=== PATIENT | female | born 1995 | race Caucasian/White ===

== ENCOUNTER 2024-06-25 13:18 | Outpatient (AMB) | payer OTHER, SELFPAY ==
--- NOTE | 2024-06-25 13:23 | A.OFFVIS_ITS ---
Vital Signs 06/25/24 13:26 Height 5 ft 1 in Weight 188 lb 4 oz BMI 35.6 BP 112/72 Blood Pressure Location Rt brachial Position Sitting Intake Visit Reasons: ENP-Migraine w/worsening visual Intake Note: Patient presents for migraines. Allergies No Known Allergies Allergy (Verified 06/25/24 13:27) Medication List - Last Reconciled 06/25/24 by Aarti Chi, HEEL [facility]ICKER albuterol sulfate 90 mcg/actuation 2 puffs inhalation Q4H PRN escitalopram oxalate 10 mg PO DAILY lamotrigine 100 mg PO DAILY norethindrone (contraceptive) 0.35 mg PO DAILY PNV cmb#95-ferrous fumarate-FA 28 mg iron- 800 mcg () 1 tab PO QAM HPI Comments Details: Right-handed 29-yr-old female presents for new pt evaluation of headache disorder. Pt reports she started having migraines since adolescence, however they became more severe and frequent around age 22-23 w/o known precipitating causes. Note pt is 3 months w/ her 1st child. During her the migraines were better. She is currently nursing 3 x's per day/. Menses is currently irregular on low dose progesterone oral contraceptive- prior to was very regular. Plans on trying an IUD. Not currently on preventive migraine tx, and triptans were stopped when she became . PMH and ROS are notable for:? General: fatigue, wt changes. Occasional restless leg. Had anemia. Musculoskeletal disorders or injury: occasional neck/back pain. Mood d/o: Anxiety, Depression, Bilpolar type II d/o. Denies PTSD. Mood well- controlled on current regimen- f/b psych and therapist. Respiratory d/o: Asthma CV disease: prone to low BP and near-syncope but near full syncope GI d/o: GERD, Constipation Family planning: may consider additional in 2-3 yrs. Family history of migraine or other headache disorder: mother has migraine. Pertinent denials include: History of concussion/head injury, CV disease, Clotting or hematology d/o, Endocrine d/o, metabolic d/o, History of seizure, syncope, or drop attacks, leg cramps. [Family history of migraine or other headache disorder] Lifestyle considerations: Sleep routine: Usual bedtime: 9:30-11pm and wake-up time: 8-8:30am. Sleep difficulties: Denies. Restless legs- jumpy in evening or when goes to bed- mild. Has bruxism- started after starting escitalopram. Caffeine use: 1 cup of coffee every few days. May drink 1 [id number] bottle per day. 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 Previous work-up: MRI: normal- 2-3 yrs ago. Typical headache characteristics: Prodrome symptoms: unsure Aura: Can see exploding star bursts, fireworks, has lost vision- before or during the headache. Pain intensity: moderate-severe Location, quality, characteristics: Usually starts in one eye and moves to the other side, can also be frontal, lateral, and back of head.behind Associated symptoms: dry eye sensation w/ wateriness, photophobia, allodynia, nausea, vomiting, not right in space dizziness, lightheadedness, fatigue, activity intolerance. Postdrome: can have lingering hang over sensation Triggers: Menstrual cycle. Bending oevr exacerbates headache but does not cause it. Time of day: No specific time of day Duration and Frequency: 1-24 hrs occurring 3 x's per week. How does headache impact your life? has to lay down and sleep. Current acute medication use/interventions: Ibuprofen 600-800mg or Tylenol 500mg- once per migraine day. Current preventative medication use: Lamotrigine 100mg- has not helped auras. Non-pharmacological interventions: rest and sleep [facility], [facility] Medical History (Updated 06/25/24 @ 14:59 by HEDY Riggins) anemia GERD (gastroesophageal reflux disease) Bipolar II disorder Asthma Anxiety Allergic rhinitis Surgical History (Updated 06/25/24 @ 13:29 by JOSE Valente) History of oral surgery History of tonsillectomy and adenoidectomy Social History (Updated 06/25/24 @ 13:29 by JOSE Valente) Alcohol intake: never Patient Tobacco Use Status: Never used Tobacco Physical Exam Vital Signs: Last Vital Signs BP 112/72 06/25/24 13:26 BMI result Body Mass Index 35.6 Const Orientation/consciousness: patient oriented x3 Resp Effort & Inspection: normal respiratory effort and able to speak in complete sentences Neuro Other: No palpable scalp tenderness. Photophobic Good cervical ROM. General: patient oriented x3 Cranial nerves: Yes CN's II-XII intact bilaterally Cognition (Neuro): normal cognition Gait exam (Neuro): Normal gait present Motor exam (neuro): 5/5 motor strength present throughout Deep tendon reflexes (DTR's): Right triceps reflex intensity grade: 2+, Left triceps reflex intensity grade: 2+, Rt Biceps (C5, C6): 2+, Left biceps reflex intensity grade: 2+, Right brachioradialis reflex intensity grade: 2+, Left brachioradialis reflex intensity grade: 2+, Right patellar reflex intensity grade: 2+ and Left patellar reflex intensity grade: 2+ Coordination: [id number] test normal, tandem gait normal and Romberg test negative Pupils: Normal pupillary reactivity/response: bilateral Psych Appearance: grossly normal Mental Status: mental status grossly normal Speech and movement: Normal speech and movement present Affect: normal affect Attitude: cooperative Thought process: Normal thought process present Assessment & Plan Assessment & Plan (1) Migraine with aura: Code(s): G43.109 - Migraine with aura, not intractable, without status migrainosus Category: Medical (2) Mother currently breast-feeding: Code(s): Z39.1 - Encounter for care and examination of lactating mother Category: Medical (3) Restless leg syndrome: Comment: mild, occasional Code(s): G25.81 - Restless legs syndrome Category: Medical Plan For overall headache management: * Optimize good self-care, including but not limited to maintaining a healthy diet, adequate fluid intake, adequate sleep, and engaging in regular physical activity. * Track headaches, especially after any treatment regimen changes. Migraine [employer] is one of many headache tracking apps. * Information shared on non-pharmacological interventions which may help to alleviate headache attack burden. * For light sensitivity: Patient may benefit from trying blue light filtering glasses, green glasses, green light therapy. * Avoiding wearing sunglasses inside. * Neuromodulation devices, which can be used alone or with pharmacological treatment- such as Cefaly or Nerivio devices. For acute headache treatment: Discussed importance of taking acute medications at the first sign of headache, however stressed importance of avoiding acute medication overuse (especially with combined headache medications). Sumatriptan may used while breast feeding. Trial Sumatriptan 100mg tab, 1/2 - 1 tab (50-100mg) at onset of headache, may repeat in 2 hours. Max of 2 tabs (200mg) per 24 hours. May adjunct with OTC Tylenol 650mg q 4 hours, Ibuprofen 600-800mg q 6-8 hours, or Naproxen 440mg q 12 hrs prn. Potential adverse effects of triptans, include but are not limited to nausea, fatigue, chest tightness/tingling (usually passes within a few minutes), medication overuse headaches. Previous acute migraine medication trials: Sumatriptan 25mg- helpful. Rizatriptan- was more effective. Acute migraine medication contraindications: None at this time For headache prevention medication: Preventative medications should be taken routinely as prescribed for best effec t, it may take several weeks for full effect to take effect. Start Magnesium 400mg qhs Previous migraine prevention medication trials: Topiramate 50mg- ineffective after x's 1.5 yrs. Propranolol ET 80-120mg- ineffective and caused hypotension, though did help anxiety. Migraine prevention medication contraindications: CGRP antagonists as pt is currently breast feeding. Depakote as pt is a female of child bearing age. Anti- HTN including beta-blockers agents d/t low BP. Pt seen in collaboration w/ Dr Thelma Lau. Pt to follow-up in 4-6 months or sooner prn. Medications: New sumatriptan succinate (0.5 - 1 x 100 mg) 50 - 100 mg orally at onset of headache, may repeat in 2 hrs PRN; max 2 tabs per day or 4 tabs/week (may take with Ibuprofen) 30 days 12 tabs 6RF migraine headache magnesium oxide may hold for loose stools 400 mg PO BEDTIME 30 days 30 tabs 6RF Coding Level of Care Code New Pt Level 4 (28889) Diagnoses Migraine with aura G43.109 Mother currently breast-feeding Z39.1 Restless leg syndrome G25.81
[2024-06-25 13:26] VITALS: BP 112/72; BMI 35.6
== END 2024-06-25 14:39 | disposition home or self-care (01) ==
LOC: HO.HSMS 13:18
PROVIDERS: PCP Internal Medicine; Visit Provider Nurse Practitioner Family
DX: G43.109 Migraine with aura, not intractable, without status migrainosus (principal); G25.81 Restless legs syndrome; Z39.1 Encounter for care and examination of lactating mother
CPT/HCPCS: 99204

== ENCOUNTER → 2024-06-25 13:18 | Outpatient (BNVA) | payer OTHER, SELFPAY | PROVIDERS: PCP Internal Medicine; Visit Provider Nurse Practitioner Family ==